=== PATIENT | female | born 1955 | race Caucasian/White ===

== ENCOUNTER 2024-06-24 10:30 | Outpatient (RCR) | payer MEDICARE, MEDICAID, SELFPAY ==
--- NOTE | 2024-06-14 10:40 | PT.ODAYNRPT ---
PT Outpatient Daily Note OP Daily Note Outpatient Physical Therapy Treatment Date: 06/14/24 Visit Reasons: right elbow pain Subjective: Pt has been able to do most of her ADLs with less limitation. Objective: Please see flow chart for list of ther ex performed Assessment: progressing with hand strength and able to perform all hand exercises with green resistance Plan: Continue with PT Length of Time (minutes) of Treatment: 30 Minutes Procedure Charges Therapeutic Exercise 30 minutes: Yes
--- NOTE | 2024-06-17 09:29 | PT.ODAYNRPT ---
PT Outpatient Daily Note OP Daily Note Outpatient Physical Therapy Treatment Date: 06/17/24 Visit Reasons: right elbow pain Subjective: Pt's elbow much better and does not have any concerns. Objective: Please see flow chart for list of ther ex performed Assessment: tolerate exercises with minimal pain; less break with increase hand resistance exercises indicating improved endurance Plan: Continue with PT Length of Time (minutes) of Treatment: 30 Minutes Procedure Charges Therapeutic Exercise 30 minutes: Yes
--- NOTE | 2024-06-21 09:58 | PTNOTE_ITS ---
PT Outpatient Daily Note OP Daily Note Outpatient Physical Therapy Treatment Date: 06/21/24 Visit Reasons: right elbow pain Subjective: Pt reports ROM has improved since starting PT but still not able to completely extend elbow. Objective: Please see flow sheet for ther ex list. Assessment: Added repeated extension with wand for R elbow exercise with wand pt tolerated well. Plan: Continue with POC. Length of Time (minutes) of Treatment: 30 Minutes MEDICAL OFFICE ADMINISTRATOR Service Modifier Method I: Divide the number of min of care provided by the MEDICAL OFFICE ADMINISTRATOR/JEMIMA by the total min of care provided then multiply by 100. If greater than 11 percent modifier is required. Method II: Divide the total time of care provided to patient by 10 (round to the nearest whole number) and add 1 min. to set the minimum time requirement. If treatment total was 60 min., then 10% of 6 min PT CQ modifier applied: CQ Modifier applied Procedure Charges Therapeutic Exercise 30 minutes: Yes
--- NOTE | 2024-06-24 15:51 | PTNOTE_ITS ---
PT OP Progress/Discharge Note Date of Service: 06/24/24 Progress Note/DC Note Progress Note/Discharge Note: DC Note Patient Information Visit Reasons: right elbow pain Medical Diagnosis: [id number] Treatment Dx #1: Right Elbow Pain Service Discharge Date: 06/24/24 Status Subjective: Pt's elbow is much better. Pt mention she's been able to return back to all ADLs with minimal limitation. At this time Pt feels comfortable being release from care with exercises to continue at home. Objective: Right Elbow AROM: -20 deg to 128 deg Right Elbow MMTs: grossly 4-/5 Right Wrist AROM: all motions are WNL Molding Line Assistant Strength L: 66 lbs R: 50 lbs Assessment: Pt demonstrate functional elbow mobility and strength allowing her to resume ADLs, chores, and recreational activities with less limitation. Pt has met set goals in therapy and will no longer benefit from physical therapy. Pt was instructed on HEP last session and educated to continue exercises to maintain overall mobility. Pt performed all exercises safely, thank you for your referrals. Plan: D/C home with HEP and follow up with MD GARNETT Procedure Charges Therapeutic Exercise 30 minutes: Yes
== END 2024-07-09 23:59 | disposition home or self-care (01) ==
LOC: CPTX 10:30
PROVIDERS: PCP Orthopaedic Surgery; Referring Provider Orthopaedic Surgery; Visit Provider Orthopaedic Surgery
DX: M25.521 Pain in right elbow (principal); S52.124D Nondisplaced fracture of head of right radius, subsequent encounter for closed fracture with routine healing; W19.XXXD Unspecified fall, subsequent encounter
CPT/HCPCS: 97110